=== PATIENT | female | born 1950 | race Caucasian/White ===

== ENCOUNTER 2017-09-05 10:45 | Inpatient (IN) | payer MEDICARE, MEDICAID ==
[~2017-09-05] VITALS: Ht 154.9 cm; Wt 103.4 kg
[2017-09-05] MEDS ORDERED: INSNOV SUBCUT (10:51)
[2017-09-05] MEDS ORDERED: NITR0.4T49 SL (10:51)
[2017-09-05] MEDS ORDERED: ASPIRIN 81MG TABLET PO STA (11:34)
[2017-09-05 11:57] LABS: BASOPHILS % 0.4 % (0.0-2.0); EOSINOPHILS % 1.9 % (0.0-5.0); HEMATOCRIT. 38.5 % (36.0-48.0); HEMOGLOBIN. 12.6 g/dL (12.0-16.0); LYMPHOCYTES % 21.6 % (20.0-50.0); MEAN CORPUSCULAR HEMOGLOBIN 27.2 pg (28.0-32.0); MEAN CORPUSCULAR VOLUME 82.6 fL (81.0-99.0); MEAN PLATELET VOLUME 8.9 fl (7.4-10.4); MONOCYTES % 10.1 % (2.0-8.0); PLATELET 253 x1000/uL (130-400); RED BLOOD CELL COUNT 4.66 mill/uL (4.2-5.4); RED CELL DISTRIBUTION WIDTH 14.8 % (11.6-14.6)
[2017-09-05 12:03] LABS: INR 1.1; PARTIAL THROMBOPLASTIN TIME 29.2 sec (23.4-31.0); PROTHROMBIN TIME 11.5 sec (9.4-11.6)
[2017-09-05 12:14] LABS: CARBON DIOXIDE 29 mEq/L (21-32); CHLORIDE 103 mEq/L (98-107); TROPONIN I < 0.02 ng/mL (0.00-0.04)
[2017-09-05] MEDS ORDERED: POTASSIUM CHLORIDE 20MEQ TABLET SR PO ONE (14:15)
[2017-09-05] MEDS ORDERED: ONDANSETRON HCL 4MG/2ML VIAL IV PRN (23:15)
[2017-09-05] MEDS ORDERED: CLONIDINE 0.1MG TABLET PO PRN (23:15)
[2017-09-05] MEDS ORDERED: DEXTROSE 50% WATER 50ML SYRINGE IV PRN (23:15)
[2017-09-05] MEDS ORDERED: MAGNESIUM/ALUMINUM HYDROXIDE/SIMETHICONE 30ML UDC PO PRN (23:15)
[2017-09-05] MEDS ORDERED: ACETAMINOPHEN 325MG TABLET PO PRN (23:15)
[2017-09-05] MEDS ORDERED: IPRATROPIUM/ALBUTEROL 0.5-3(2.5)MG/3ML NEB INH PRN (23:15)
[2017-09-05] MEDS ORDERED: DIPHENHYDRAMINE 50MG/ML VIAL IV PRN (23:15)
[2017-09-06] MEDS ORDERED: REGADENOSON 0.4 MG/5 ML IV ONE (08:43)
[2017-09-06 09:45] VITALS: BP 139/61
[2017-09-06] MEDS ORDERED: REGADENOSON 0.4 MG/5 ML IV NR (10:00)
[2017-09-06 10:30] VITALS: BP 139/61
[2017-09-06] MEDS ORDERED: ENOXAPARIN 40MG/0.4ML SYR SUBCUT SCH (10:30)
[2017-09-06 12:00] VITALS: BP 136/66
[2017-09-06] MEDS ORDERED: BLOOD SUGAR DIAGNOSTIC STRIP TEST SCH (12:40)
[2017-09-06 13:00] VITALS: BP 138/74
[2017-09-06] MEDS ORDERED: MAGNESIUM 1 G PREMIX 100 ML IV ONE (13:00)
[2017-09-06] MEDS ORDERED: INSULIN LISPRO 100 UNITS/ML SUBCUT SCH (13:10)
[2017-09-06] MEDS ORDERED: SODIUM CHLORIDE 0.9% INJ 3ML FLUSH IVF SCH (14:00)
[2017-09-06 16:00] VITALS: BP 138/74
[2017-09-06 16:18] LABS: TROPONIN I < 0.02 ng/mL (0.00-0.04)
[2017-09-06 17:05] VITALS: BP 138/74
[2017-09-06] MEDS ORDERED: ENOXAPARIN 30MG/0.3ML SYR SUBCUT SCH (21:00)
== END 2017-09-06 17:20 | disposition home or self-care (01) | DRG 313 ==
LOC: ER 10:57 → 7WST 13:24 → EDBEDREQ 13:27 → ENRESERV 09-06 07:44
PROVIDERS: ADMIT Internal Medicine; ATTEND Internal Medicine
DX: R07.89 Other chest pain (principal); E11.9 Type 2 diabetes mellitus without complications; J98.11 Atelectasis; F41.1 Generalized anxiety disorder; I10 Essential (primary) hypertension; Z79.4 Long term (current) use of insulin; Z79.899 Other long term (current) drug therapy
CPT/HCPCS: 36415; 71045; 78452; 80053; 82962; 83036; 83735; 83880; 84484; 85025; 85610; 85730; 93005; 93017; 99285; A9500; J1650; J1815; J2785

== ENCOUNTER 2017-09-25 12:36 | Emergency (ER) | payer MEDICARE, MEDICAID ==
[~2017-09-25] VITALS: Ht 160 cm; Wt 90.0 kg
[2017-09-25] MEDS ORDERED: ONDANSETRON 4MG ODT PO ONE (13:15)
[2017-09-25] MEDS ORDERED: IBUPROFEN 600MG TABLET PO ONE (13:15)
[2017-09-25 15:00] VITALS: BP 147/77
== END 2017-09-25 15:30 | disposition home or self-care (01) ==
LOC: ER 12:46
DX: S20.312A Abrasion of left front wall of thorax, initial encounter (principal); I10 Essential (primary) hypertension; E11.9 Type 2 diabetes mellitus without complications; V49.88XA Car occupant (driver) (passenger) injured in other specified transport accidents, initial encounter; Y93.89 Activity, other specified; Y92.410 Unspecified street and highway as the place of occurrence of the external cause; Y99.8 Other external cause status
CPT/HCPCS: 71045; 99283; Q0162

== ENCOUNTER 2024-01-25 09:54 | Inpatient (IN) | payer MEDICARE, MEDICAID ==
[~2024-01-25] VITALS: Ht 152.4 cm; Wt 63.5 kg
[~2024-01-25 09:54] MED LIST: APIX5TAB PO; ASPI-1497 PO; ATOR-2 MT; DILT120C88 MT; FELO5TAB46 MT; GLIP5TAB22 MT; GLYB5TAB7 PO; LORA-1118 MT; LORA10TA7 MT; LOSA100T33 MT; METF-414 MT; METO-411 MT; NITR0.4T49 SL; SIMV10TA97 MT
[2024-01-25 10:08] VITALS: O2SAT 99
[2024-01-25 12:40] LABS: BASOPHILS % 0.3 % (0.0-2.0); EOSINOPHILS % 0.1 % (0.0-5.0); HEMATOCRIT. 34.8 % (36.0-48.0); HEMOGLOBIN. 11.8 g/dL (12.0-16.0); LYMPHOCYTES % 9.5 % (20.0-50.0); MEAN CORPUSCULAR HEMOGLOBIN 28.7 pg (28.0-32.0); MEAN CORPUSCULAR HGB CONC 33.8 g/dL (31.0-37.0); MEAN CORPUSCULAR VOLUME 85.1 fL (81.0-99.0); MEAN PLATELET VOLUME 8.7 fl (7.4-10.4); MONOCYTES % 6.2 % (2.0-8.0); NEUTROPHILS % 83.9 % (40.0-76.0); PLATELET 364 x1000/uL (130-400); WHITE BLOOD COUNT 13.6 x1000/uL (4.5-11.0)
[2024-01-25 12:45] LABS: CHLORIDE 97 mEq/L (98-107); POTASSIUM 3.4 mEq/L (3.5-5.1); SODIUM 127 mEq/L (136-145)
[2024-01-25 12:46] LABS: CALCIUM 9.6 mg/dL (8.7-10.4); CARBON DIOXIDE 24 mEq/L (21-32)
[2024-01-25 12:51] LABS: CREATININE 1.3 mg/dL (0.6-1.0); GLUCOSE 197 mg/dL (70-105); UREA NITROGEN BLOOD 28 mg/dL (9-23)
[2024-01-25 12:53] LABS: ALANINE AMINOTRANSFERASE 241 IU/L (10-49); ALBUMIN 4.2 g/dL (3.2-4.8); ASPARTATE AMINOTRANSFERASE 139 IU/L (<34); BILIRUBIN DIRECT 0.9 mg/dL (<=3.0); BILIRUBIN TOTAL 1.3 mg/dL (0.1-1.0); PROTEIN TOTAL 7.6 g/dL (6.0-8.3)
[2024-01-25] MEDS: SODIUM CHLORIDE 0.9% 1,000 ML IV ONE (13:01)
[2024-01-25 13:26] LABS: TROPONIN I HIGH SENSITIVITY 64 ng/L (3.0-34)
[2024-01-25] MEDS ORDERED: LORAZEPAM 0.5MG TABLET PO PRN (20:00)
[2024-01-25] MEDS ORDERED: MAGNESIUM/ALUMINUM HYDROXIDE/SIMETHICONE 30ML UDC PO PRN (20:00)
[2024-01-25] MEDS ORDERED: ACETAMINOPHEN 325MG TABLET PO PRN ×2 (20:00)
[2024-01-25] MEDS ORDERED: CLONIDINE 0.1MG TABLET PO PRN (20:00)
[2024-01-25] MEDS ORDERED: DEXTROSE 50% WATER 50ML SYRINGE IV PRN (20:00)
[2024-01-25] MEDS ORDERED: ONDANSETRON HCL 4MG/2ML INJ IV PRN (20:00)
[2024-01-25] MEDS: INSULIN LISPRO 100 UNITS/ML SUBCUT SCH (21:00)
[2024-01-25] MEDS: METOPROLOL TARTRATE 25MG TABLET PO SCH (21:45)
[2024-01-25] MEDS: ATORVASTATIN CALCIUM 10MG TABLET PO SCH (21:46)
[2024-01-25] MEDS: HYDRALAZINE HCL 25MG TABLET PO SCH (21:46)
[2024-01-25] MEDS: BLOOD SUGAR DIAGNOSTIC STRIP TEST SCH (21:53)
[2024-01-25] MEDS: PIPERACILLIN/TAZO 3.375G/50ML 50 ML IV SCH (21:53)
[2024-01-25] MEDS: SODIUM CHLORIDE 0.9% INJ 3ML FLUSH IVF SCH (22:00)
[2024-01-25 22:44] VITALS: BP 118/58; PULSE 81; RESP 18; TEMP 98
[2024-01-25 23:39] LABS: TROPONIN I HIGH SENSITIVITY 83 ng/L (3.0-34)
[2024-01-26] VITALS: BP 133/68; PULSE 76; RESP 18; TEMP 98
[2024-01-26 04:00] VITALS: BP 104/49; PULSE 71; RESP 19; TEMP 97.9
[2024-01-26 08:00] VITALS: BP 123/61; PULSE 80; RESP 18; TEMP 97.5
[2024-01-26 08:25] LABS: TROPONIN I HIGH SENSITIVITY 57 ng/L (3.0-34)
[2024-01-26] MEDS: APIXABAN 5 MG TABLET PO SCH (08:38)
[2024-01-26] MEDS: MELOXICAM 7.5MG TABLET PO SCH (08:38)
[2024-01-26] MEDS: GLYBURIDE 5MG TABLET PO SCH (10:50)
[2024-01-26 12:00] VITALS: BP_SYST 118; BP_SYST 129; BP_DIAS 55; BP_DIAS 83; PULSE 71; PULSE 74; RESP 18; RESP 20; TEMP 97.9
[2024-01-26] MEDS: ENOXAPARIN 60MG/0.6ML SYR SUBCUT NR (14:38)
[2024-01-26 16:00] VITALS: BP 133/76; PULSE 78; RESP 18; TEMP 97.5
[2024-01-26] MEDS ORDERED: HYDR25TA78 PO (16:01)
[2024-01-26] MEDS ORDERED: MELO-106 PO (16:01)
[2024-01-26] MEDS ORDERED: CHLO25TA2 PO (16:05)
[2024-01-26] MEDS ORDERED: LOSA25TA26 PO (16:05)
[2024-01-26] MEDS ORDERED: OMEP20CA14 PO (16:05)
[2024-01-26] MEDS ORDERED: GLYB5TAB7 PO (16:05)
[2024-01-26] MEDS ORDERED: METO-396 PO (16:05)
[2024-01-26] MEDS ORDERED: ALLO300T2 PO (16:05)
[2024-01-26] MEDS ORDERED: FOLI-43 PO (16:05)
[2024-01-26] MEDS ORDERED: NITR0.4T49 SL (16:06)
[2024-01-26] MEDS ORDERED: METF-414 PO (16:06)
[2024-01-26] MEDS ORDERED: FELO5TAB46 PO (16:06)
[2024-01-26 17:42] LABS: D-DIMER 1.43 mg/L FEU (<0.50)
[2024-01-26 20:00] VITALS: BP 138/68; PULSE 87; RESP 20; TEMP 97.3
[2024-01-26] MEDS: SODIUM CHLORIDE 0.9% 1,000 ML IV SCH (20:55)
[2024-01-26] MEDS: METOPROLOL TARTRATE 50MG TABLET PO SCH (21:08)
[2024-01-26] MEDS: DIPHENHYDRAMINE 50MG/ML VIAL IV PRN (22:41)
[2024-01-27] VITALS: BP 105/49; PULSE 66; RESP 19; TEMP 97.3
[2024-01-27 04:00] VITALS: BP 115/52; PULSE 70; RESP 20; TEMP 97.2
[2024-01-27 07:54] LABS: BASOPHILS % 0.8 % (0.0-2.0); CHLORIDE 101 mEq/L (98-107); EOSINOPHILS % 2.7 % (0.0-5.0); HEMATOCRIT. 32.1 % (36.0-48.0); HEMOGLOBIN. 10.7 g/dL (12.0-16.0); LYMPHOCYTES % 30.7 % (20.0-50.0); MEAN CORPUSCULAR HEMOGLOBIN 29.1 pg (28.0-32.0); MEAN CORPUSCULAR HGB CONC 33.3 g/dL (31.0-37.0); MEAN CORPUSCULAR VOLUME 87.5 fL (81.0-99.0); MONOCYTES % 9.4 % (2.0-8.0); NEUTROPHILS % 56.4 % (40.0-76.0); PLATELET 363 x1000/uL (130-400); POTASSIUM 3.3 mEq/L (3.5-5.1); RED BLOOD CELL COUNT 3.67 mill/uL (4.2-5.4); RED CELL DISTRIBUTION WIDTH 15.2 % (11.6-14.6); SODIUM 133 mEq/L (136-145); WHITE BLOOD COUNT 6.8 x1000/uL (4.5-11.0)
[2024-01-27 07:58] LABS: CALCIUM 9.3 mg/dL (8.7-10.4); CARBON DIOXIDE 24 mEq/L (21-32)
[2024-01-27 08:00] VITALS: BP_SYST 133; BP_SYST 166; BP_DIAS 67; BP_DIAS 76; PULSE 77; RESP 17; RESP 18; TEMP 97.1
[2024-01-27 08:03] LABS: ALANINE AMINOTRANSFERASE 137 IU/L (10-49); CREATININE 0.9 mg/dL (0.6-1.0); GLUCOSE 98 mg/dL (70-105); UREA NITROGEN BLOOD 20 mg/dL (9-23)
[2024-01-27 08:05] LABS: ALBUMIN 3.6 g/dL (3.2-4.8); ASPARTATE AMINOTRANSFERASE 49 IU/L (<34); BILIRUBIN DIRECT 0.3 mg/dL (<=3.0); BILIRUBIN TOTAL 0.6 mg/dL (0.1-1.0); PHOSPHORUS 3.4 mg/dL (2.5-4.9)
[2024-01-27] MEDS: POTASSIUM CHLORIDE 20MEQ TABLET SR PO SCH (10:14)
[2024-01-27] MEDS: MAGNESIUM 4 G PREMIX 100 ML IV SCH (10:59)
[2024-01-27 13:34] VITALS: BP 133/67; PULSE 77; TEMP 97.1
[2024-01-27] MEDS ORDERED: ENOXAPARIN 60MG/0.6ML SYR SUBCUT SCH (14:00)
== END 2024-01-27 14:40 | disposition home or self-care (01) | DRG 281 ==
LOC: ER 09:54 → 5WST 15:18 → EDBEDREQ 15:19 → EDBEDREQTM 15:19 → 7EST 22:54
PROVIDERS: ADMIT Internal Medicine; ATTEND Internal Medicine
DX: I48.0 Paroxysmal atrial fibrillation (principal); N17.9 Acute kidney failure, unspecified; I21.A1 Myocardial infarction type 2; R07.89 Other chest pain; E11.9 Type 2 diabetes mellitus without complications; I11.9 Hypertensive heart disease without heart failure; F41.9 Anxiety disorder, unspecified; Z20.822 Contact with and (suspected) exposure to COVID-19; E78.5 Hyperlipidemia, unspecified; E83.42 Hypomagnesemia; E87.6 Hypokalemia; R79.89 Other specified abnormal findings of blood chemistry; F41.1 Generalized anxiety disorder; I25.2 Old myocardial infarction; Z79.01 Long term (current) use of anticoagulants
CPT/HCPCS: 36415; 71045; 76705; 80048; 80076; 82962; 83036; 83735; 84100; 84484; 85025; 85379; 87426; 93005; 93306; 99285; J1200; J1650; J1815; J2543; J3475; J7030